=== PATIENT | female | born 1995 | race Caucasian/White ===

== ENCOUNTER 2017-10-13 13:28 | Emergency (ER) | payer SELFPAY ==
--- NOTE | 2017-10-13 14:21 | EDM.PDOC ---
ED HPI GENERAL MEDICAL PROBLEM - General Chief Complaint: Skin Complaint Stated Complaint: ABCESS ON NECK Time Seen by Provider: 10/13/17 14:20 Source of Information: Reports: Patient - History of Present Illness INITIAL COMMENTS - FREE TEXT/NARRATIVE: HISTORY AND PHYSICAL: History of present illness: [Patient has a small abscess over her thoracic spine centrally red raised fluctuant area tender no fever nausea vomiting chills sweats ] Abscess is approximately 1-1.5 inches in diameter Review of systems: As per history of present illness and below otherwise all systems reviewed and negative. Past medical history: As per history of present illness and as reviewed below otherwise noncontributory. Surgical history: As per history of present illness and as reviewed below otherwise noncontributory. Social history: No reported history of drug or alcohol abuse. Family history: As per history of present illness and as reviewed below otherwise noncontributory. Physical exam: HEENT: Atraumatic, normocephalic, pupils reactive, negative for conjunctival pallor or scleral icterus, mucous membranes moist, throat clear, neck supple, nontender, trachea midline. Lungs: Clear to auscultation, breath sounds equal bilaterally, chest nontender. Heart: S1S2, regular, negative for clicks, rubs, or JVD. Abdomen: Soft, nondistended, nontender. Negative for masses or hepatosplenomegaly. Negative for costovertebral tenderness. Pelvis: Stable nontender. Genitourinary: Deferred. Rectal: Deferred. Extremities: Atraumatic, negative for cords or calf pain. Neurovascular unremarkable. Neuro: Awake, alert, oriented. Cranial nerves II through XII unremarkable. Cerebellum unremarkable. Motor and sensory unremarkable throughout. Exam nonfocal. Diagnostics: [Wound culture ] Therapeutics: [Lidocaine 1 g Rocephin ]1 inch linear incision with extraction of curdy lesion consistent with sebaceous cyst with secondary inflammation #350 sutures interrupted Bactrim double strength by mouth twice a day #20 no refi ll Impression: [ abscess, post I&D ] Core lesion consistent with sebaceous cyst send for pathology Definitive disposition and diagnosis as appropriate pending reevaluation and review of above. Upper Mid-Posterior Back Pain Score (Numeric/FACES): 10 - Related Data Allergies Allergy/AdvReac Type Severity Reaction Status Date / Time No Known Allergies Allergy Verified 10/13/17 13:44 Home Meds: Home Meds . [No Known Home Meds] 10/13/17 [History] Past Medical History - Past Health History Medical/Surgical History: Denies Medical/Surgical History Social & Family History - Family History Family Medical History: Noncontributory - Tobacco Use Smoking Status *Q: Never Smoker - Caffeine Use Caffeine Use: Reports: None - Recreational Drug Use Recreational Drug Use: No ED ROS GENERAL - Review of Systems Review Of Systems: ROS reveals no pertinent complaints other than HPI. ED EXAM, SKIN/RASH Exam: See Below Course - Vital Signs Last Recorded V/S: Last Vital Signs Temp 97.8 F 10/13/17 13:45 Pulse 70 10/13/17 13:45 Resp 16 10/13/17 13:45 BP 119/58 L 10/13/17 13:45 Pulse Ox 97 10/13/17 13:45 - Orders/Labs/Meds Orders: Active Orders 24 hr Category Date Time Status CULTURE WOUND [RM] Stat Lab 10/13/17 14:18 Ordered Meds: Medications Discontinued Medications Generic Name Dose Route Start Last Admin Trade Name Odilon PRN Reason Stop Dose Admin Ceftriaxone Sodium 1,000 mg/ 4 mls @ 4 mls/sec 10/13/17 14:18 Lidocaine HCl IM 10/13/17 14:19 ONETIME ONE Lidocaine HCl 20 ml 10/13/17 14:18 Xylocaine 1% INJECT 10/13/17 14:19 ONETIME ONE Departure - Departure Time of Disposition: 15:00 Disposition: Home, Self-Care 01 Condition: Good Clinical Impression: Cellulitis, Cyst - Discharge Information Referrals: PCP,None [Primary Care Provider] - Forms: ED Department Discharge Additional Instructions: Medication as prescribed Return if symptoms persist or worsen Follow-up with primary care in 2 weeks Sutures out in 10 days [facility] [address] [place] [id number] The following information is given to patients seen in the emergency department who are being discharged to home. This information is to outline your options for follow-up care. We provide all patients seen in our emergency department with a follow-up referral. The need for follow-up, as well as the timing and circumstances, are variable depending upon the specifics of your emergency department visit. If you don't have a primary care physician on staff, we will provide you with a referral. We always advise you to contact your personal physician following an emergency department visit to inform them of the circumstance of the visit and for follow-up with them and/or the need for any referrals to a consulting specialist. The emergency department will also refer you to a specialist when appropriate. This referral assures that you have the opportunity for follow-up care with a specialist. All of these measure are taken in an effort to provide you with optimal care, which includes your follow-up. Under all circumstances we always encourage you to contact your private physician who remains a resource for coordinating your care. When calling for follow-up care, please make the office aware that this follow-up is from your recent emergency room visit. If for any reason you are refused follow-up, please contact the [facility] emergency department at and asked to speak to the emergency department charge nurse. - My Orders Last 24 Hours: My Active Orders 10/13/17 14:18 CULTURE WOUND [RM] Stat - Assessment/Plan Last 24 Hours: My Active Orders 10/13/17 14:18 CULTURE WOUND [RM] Stat
[2017-10-13] MEDS ORDERED: Bacitracin Oint 1 GM U/D Packet ONE (15:04)
[2017-10-13] MEDS: cefTRIAXone 1,000 MG in Lidocaine 1% 4 ML IM ONE (15:14)
[2017-10-13] MEDS: Lidocaine 1% 20 ML MDV INJECT ONE (15:38)
[2017-10-13] MEDS: Bacitracin Oint 1 GM U/D Packet TOP ONE (15:38)
== END 2017-10-13 15:32 | disposition home or self-care (01) ==
LOC: MW.ED 13:28
DX: L02.212 Cutaneous abscess of back [any part, except buttock and flank] (principal); L03.312 Cellulitis of back [any part except buttock and flank]; L72.3 Sebaceous cyst
CPT/HCPCS: 10060; 87070; 96372; 99283; J0696